=== PATIENT | female | born 1980 | race Caucasian/White ===

== ENCOUNTER 2018-07-27 08:34 | Emergency (ER) | payer BC, OTHER ==
[~2018-07-27] VITALS: Ht 152.4 cm; Wt 68.2 kg
[2018-07-27] MEDS ORDERED: NORE0.353 (08:41)
[2018-07-27] MEDS ORDERED: GABA-845 (08:41)
[2018-07-27] MEDS ORDERED: NS 1,000 ML IV ONE (09:30)
[2018-07-27 09:38] LABS: BASO % 0.4 % (0.0-1.0); EOS # 0.2 10^3/uL (0.0-0.50); EOS % 2.1 % (0.0-3.0); HEMATOCRIT 47.6 % (36.0-47.0); HEMOGLOBIN 16.5 g/dl (12.0-15.5); LYMPH # 2.2 10^3/uL (1.5-4.5); LYMPH % 27.2 % (24.0-44.0); MEAN CORPUSCULAR HEMOGLOBIN 31.4 pg (27.0-33.0); MEAN CORPUSCULAR HGB CONC 34.7 g/dl (32.0-36.5); MEAN CORPUSCULAR VOLUME 90.7 fl (80.0-96.0); MONO % 13.1 % (0.0-5.0); NEUTROPHILS # 4.5 10^3/uL (1.8-7.7); NEUTROPHILS % 57.1 % (36.0-66.0); PLATELET COUNT, AUTOMATED 235 10^3/uL (150-450); RED BLOOD COUNT 5.25 10^6/uL (4.00-5.40)
[2018-07-27 10:34] LABS: ALBUMIN 4.2 GM/DL (3.2-5.2); ALT/SGPT 33 U/L (12-78); BILIRUBIN,DIRECT < 0.1 MG/DL (0.0-0.2); BILIRUBIN,TOTAL 0.3 MG/DL (0.2-1.0); BLOOD UREA NITROGEN 11 MG/DL (7-18); CALCIUM LEVEL 8.9 MG/DL (8.5-10.1); CARBON DIOXIDE LEVEL 25 MEQ/L (21-32); CHLORIDE LEVEL 105 MEQ/L (98-107); CREATININE FOR GFR 0.78 MG/DL (0.55-1.30); GLOMERULAR FILTRATION RATE > 60.0 (>60); GLUCOSE, FASTING 89 MG/DL (70-100); HCG, SERUM QUANTITATIVE < 1.0 MIU/ML; LIPASE 129 U/L (73-393); POTASSIUM SERUM 4.3 MEQ/L (3.5-5.1); SODIUM LEVEL 140 MEQ/L (136-145); TOTAL PROTEIN 7.4 GM/DL (6.4-8.2)
[2018-07-27] MEDS ORDERED: ISOVUE-370 76% 100ML VIAL (Q9967) As Ordered ONE (10:42)
[2018-07-27 13:18] VITALS: BP 137/97
--- NOTE | 2018-07-27 14:33 | REP ---
CT abdomen and pelvis with IV without oral contrast: History: Left lower quadrant pain. Rule out diverticulitis. No comparison abdominal imaging. CT contrast dose: 100 ml of intravenous Isovue 370. 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 The lung bases are clear. There is no evidence of pleural effusion or upper abdominal ascites. There is a hypervascular liver lesion in the left lobe of the liver consistent with hemangioma. This measures 0.0 cm in greatest diameter. No other focal hepatic abnormality. The spleen is unremarkable. No adrenal lesion is seen on either side. No abnormalities noted in the gallbladder. The pancreas is unremarkable. The kidneys enhance symmetrically and are morphologically intact. No retroperitoneal mass or adenopathy is seen. Small and large bowel loops are normal in the upper abdomen. A normal appendix is seen in the right lower quadrant. There is a large heterogeneously enhancing vascular mass arising from the dome or fundus of the uterus. This extends up to the level of the umbilicus. The mass measures 11.0 cm right to left by 8.5 cm anterior to posterior by 12.0 cm cranial to caudal. It appears to reflect a subserosal uterine fibroid. The body of the uterus is slightly heterogeneous. No bladder abnormality is seen. No ovarian lesion is observed on either side. No free fluid. A no abdominal wall defect is seen. No bony destructive lesion is appreciated. Impression: There is a 12 cm solid hyper vascular subserosal uterine mass consistent with a fibroid, occupying the central pelvis, extending up to the umbilicus. Also noted is a 2 cm hypervascular lesion in the left lobe of the liver consistent with hemangioma. Otherwise negative. Electronically Signed by Devonte Motta MD 07/27/2018 05:22 P
--- NOTE | 2018-07-27 15:40 | REP ---
Pelvic sonography: Transabdominal scanning. History: Left lower quadrant pain. Further evaluate fibroid. Left ovary. Comparison is made with today's CT study. Findings: Uterine dimensions exclusive of the fibroid are 10.8 x 4.3 x 5.2 centimeters. A fundal subserosal fibroid seen on CT measures 11.4 x 7.5 x 10.1 cm sonographically. No other focal uterine mass is seen. Uterine myometrium is somewhat heterogeneous. Normal right ovary seen measuring 2.9 x 1.6 x 3.3 cm. Left ovary measures 3.5 x 1.9 x 2.0 cm. Normal Doppler blood flow is seen in both ovaries. Resistive indices are 0.65 on the right and 0.68 on the left. No free fluid. Impression: 11.4 cm fundal subserosal fibroid. Heterogeneous myometrium. Normal ovaries. Electronically Signed by Devonte Motta MD 07/27/2018 05:24 P
--- NOTE | 2018-07-30 11:04 | ED PDOC ---
Post-Departure Follow-Up taj yuen faxed formal report of pelvis us for fu Elidia Spencer MD Jul 30, 2018 11:04
--- NOTE | 2018-07-30 11:05 | ED PDOC ---
Post-Departure Follow-Up ct abd/p also faxed to taj cassidy for fu Elidia Spencer MD Jul 30, 2018 11:05
== END 2018-07-27 13:20 | disposition home or self-care (01) ==
LOC: M ED 08:34
DX: D25.9 Leiomyoma of uterus, unspecified (principal); Z79.899 Other long term (current) drug therapy; Z88.0 Allergy status to penicillin; Z88.1 Allergy status to other antibiotic agents; Z88.2 Allergy status to sulfonamides
CPT/HCPCS: 74177; 76856; 80048; 80076; 81001; 81025; 83690; 84702; 85025; 93976; 96360; 96361; 99284; Q9967

== ENCOUNTER 2018-10-25 06:01 | Inpatient (IN) | payer BC ==
[~2018-10-25] VITALS: Ht 152.4 cm; Wt 68.2 kg
[2018-10-25] VITALS (8 sets, daily range): BP systolic 125–141; BP diastolic 74–97
[~2018-10-25 06:01] MED LIST: GABA-845 PO; LIDOCAINE 1% MDV 20ML VIAL SQ PRN; MULTTAB86 PO; NORE0.353 PO; ZITH250T PO
[2018-10-25 06:29] LABS: HEMATOCRIT 50.3 % (36.0-47.0); HEMOGLOBIN 16.6 g/dl (12.0-15.5); MEAN CORPUSCULAR HEMOGLOBIN 30.7 pg (27.0-33.0); PLATELET COUNT, AUTOMATED 260 10^3/uL (150-450); RED BLOOD COUNT 5.41 10^6/uL (4.00-5.40); WHITE BLOOD COUNT 7.6 10^3/uL (4.0-10.0)
[2018-10-25 06:51] LABS: HCG, SERUM QUALITATIVE NEGATIVE (NEGATIVE)
[2018-10-25] MEDS ORDERED: CLINDAMYCIN 900 MG in APPROPRIATE DILUENT 1 EA IV ONE (07:00)
[2018-10-25] MEDS ORDERED: LR 1,000 ML IV ONE (07:00)
[2018-10-25] MEDS ORDERED: AZTREONAM 2 GM in D5W MINI-BAG PLUS 50 ML IV ONE (07:00)
[2018-10-25] MEDS ORDERED: BUPIVACAINE HCL 0.25% 30 ML VIAL As Ordered ONE (07:11)
[2018-10-25] MEDS ORDERED: VASOPRESSIN INJ 20 UNITS/ML VIAL As Ordered ONE (07:11)
[2018-10-25] MEDS ORDERED: dexameTHASONE 4 MG/ML 1ML VIAL (J1100) As Ordered ONE (08:11)
[2018-10-25] MEDS ORDERED: HYDROmorphone HCL 2 MG/ML 1ML VIAL (J1170) As Ordered ONE (08:11)
[2018-10-25] MEDS ORDERED: fentaNYL 250 MCG/5 ML INJECTION (J3010) As Ordered ONE (08:11)
[2018-10-25] MEDS ORDERED: SUGAMMADEX SODIUM 500 MG/5 ML VIAL (BRIDION) As Ordered ONE (08:11)
[2018-10-25] MEDS ORDERED: LIDOCAINE 2% INJ 100 MG/5 ML SDV (FOR ANES.) As Ordered ONE (08:11)
[2018-10-25] MEDS ORDERED: ONDANSETRON 4MG/2ML VIAL (J2405) As Ordered ONE (08:11)
[2018-10-25] MEDS ORDERED: ACETAMINOPHEN 1000MG 100ML IV BTL (OFIRMEV) (J0131 PER 10MG) As Ordered ONE (08:11)
[2018-10-25] MEDS ORDERED: PROPOFOL 200 MG/20 ML VIAL As Ordered ONE ×2 (08:11→09:35)
[2018-10-25] MEDS ORDERED: ROCURONIUM BROMIDE 50 MG/5 ML VIAL As Ordered ONE (08:11)
[2018-10-25] MEDS ORDERED: MIDAZOLAM INJ 2 MG/2 ML VIAL (J2250) As Ordered ONE (08:11)
[2018-10-25] MEDS ORDERED: KETOROLAC 60 MG/2 ML VIAL (J1885) As Ordered ONE (08:11)
[2018-10-25] MEDS ORDERED: ePHEDrine SULFATE 25 MG/5 ML(5MG/ML) SYRINGE As Ordered ONE ×2 (08:19→08:46)
[2018-10-25] MEDS ORDERED: oxyCODONE 5MG TAB As Ordered ONE (10:13)
[2018-10-25] MEDS ORDERED: fentaNYL 100 MCG/2 ML INJECTION (J3010) IV PRN (10:15)
[2018-10-25] MEDS ORDERED: METOCLOPRAMIDE INJ 10MG/2ML VIAL (J2765) IV PRN (10:15)
[2018-10-25] MEDS ORDERED: LR 1,000 ML IV SCH ×2 (10:15)
[2018-10-25] MEDS ORDERED: ONDANSETRON 4MG/2ML VIAL (J2405) IV PRN (10:15)
[2018-10-25] MEDS ORDERED: PERCOCET 5MG/325MG TAB PO PRN ×2 (10:15)
[2018-10-25] MEDS ORDERED: MORPHINE 4 MG/ML 1ML VIAL/SYRINGE (J2270) IV PRN (10:15)
[2018-10-25] MEDS ORDERED: oxyCODONE 5MG TAB PO PRN (10:30)
[2018-10-25] MEDS ORDERED: KETOROLAC 30 MG/ML VIAL (J1885) IV SCH (11:00)
[2018-10-25] MEDS ORDERED: OXYC1TAB23 PO (12:37)
--- NOTE | 2018-10-25 13:47 | RO ---
DATE OF OPERATION: 10/25/2018 PREOPERATIVE DIAGNOSIS: Fibroid uterus. DIAGNOSIS: Fibroid uterus. PROCEDURE PERFORMED: Abdominal myomectomy. SURGEON: Maritza Askew MD ASSET PROTECTION ASSISTANT: Michael Herring DO ANESTHESIA: General endotracheal anesthesia. ESTIMATED BLOOD LOSS: 150 mL. INTRAVENOUS FLUIDS: 1700 of lactated Ringer solution. URINE OUTPUT: 50 mL. SPECIMEN: Fibroid. OPERATIVE FINDINGS: Patient with approximately 10 x 14 cm subserosal fundal fibroid, normal-appearing bilateral adnexa, nulliparous appearing uterus. DESCRIPTION OF OPERATION: After informed consent was obtained and written consent reviewed, the patient was brought to the operating room where she was placed under general endotracheal anesthesia. A Chandler catheter was then placed and set to gravity. She was then prepped and draped in a normal sterile fashion. A time-out was performed in the operating room identifying the patient, procedure to be performed, as well as drug allergies. A Pfannenstiel skin incision was then made and this was carried down to the underlying rectus fascia. The fascia was scored and this incision was extended bilaterally. The fascia was then dissected off from the underlying rectus muscles both superiorly and inferiorly. The rectus muscles were entered in the midline. The peritoneum was then entered sharply. This was then extended. A Mobius retractor was then placed into the abdominal cavity. The uterus and fibroid was then brought to the level of the incision. Next, the fibroid as well as uterus was injected with diluted vasopressin. Using a bipolar cautery, an incision was then made along the serosa of the uterus. This incision was continued in along the location of the fibroid. The fibroid was then peeled off of the surface of the myometrium. Hemostasis was achieved with bipolar cautery. This dissection was done carefully not involving the uterine cavity. Specimen was then collected and sent to pathology. The anterior fundus was then closed using #0 Vicryl in a running locking fashion in two layers. This was followed by a third layer for imbrication. Several [id number] stitches were placed for hemostasis using #3-0 Vicryl. The abdomen was irrigated and suctioned. The uterine incision was then once again inspected and noted to be hemostatic. Ad was applied over the surgical site and Surgicel adhesive barrier was applied over the area. The uterus was then returned the patient's abdomen. The Mobius retractor was removed. The anterior peritoneum was then reapproximated with #3-0 Vicryl. Rectus muscles reapproximated with #3-0 Vicryl. Fascia was then closed with #0 Vicryl in a running nonlocking fashion. The subcutaneous tissue was then irrigated and suctioned. The subcutaneous tissue was then reapproximated with #3-0 Vicryl. Several subdermal stitches were placed with #3-0 Vicryl and the skin was closed with #4-0 Monocryl in subcuticular fashion. The incision was then clean and dry and was dressed. The patient was then awakened from general anesthesia and taken to recovery in stable condition. Counts were correct. Dr. Herring, my surgical processor played an essential role throughout the surgery. He assisted with tissue identification, retraction, as well as the meticulous nature of dissection of a fibroid and wound closure of this. MIKE
[2018-10-25] MEDS: KETOROLAC 30 MG/ML VIAL (J1885) IV SCH ×2 (15:00→21:13)
[2018-10-25] MEDS ORDERED: PROMETHAZINE INJ 25 MG/ML VIAL (J2550) IV PRN (16:00)
[2018-10-25] MEDS: PERCOCET 5MG/325MG TAB PO PRN (19:06)
[2018-10-26] VITALS: BP 116/72
[2018-10-26] MEDS: PERCOCET 5MG/325MG TAB PO PRN ×2 (00:49→07:18)
[2018-10-26] MEDS: KETOROLAC 30 MG/ML VIAL (J1885) IV SCH ×2 (03:20→08:43)
[2018-10-26 04:00] VITALS: BP 115/71
[2018-10-26 08:00] VITALS: BP 118/58
[2018-10-26 08:23] LABS: HEMATOCRIT 39.7 % (36.0-47.0); MEAN CORPUSCULAR HEMOGLOBIN 30.6 pg (27.0-33.0); MEAN CORPUSCULAR HGB CONC 32.7 g/dl (32.0-36.5); MEAN CORPUSCULAR VOLUME 93.4 fl (80.0-96.0); PLATELET COUNT, AUTOMATED 247 10^3/uL (150-450); RED BLOOD COUNT 4.25 10^6/uL (4.00-5.40); WHITE BLOOD COUNT 14.6 10^3/uL (4.0-10.0)
[2018-10-26 12:00] VITALS: BP 120/74
[2018-10-26] MEDS ORDERED: IBUPROFEN 800 MG TAB PO PRN (15:00)
[2018-10-26 16:00] VITALS: BP 122/76
[2018-10-26] MEDS ORDERED: ADVI100T PO (18:17)
== END 2018-10-26 18:55 | disposition home or self-care (01) | DRG 519 ==
LOC: M OR 06:01 → EDSTATUS 07:30 → M PED 10:45
PROVIDERS: ADMIT Obstetrics & Gynecology; ATTEND Obstetrics & Gynecology
PROC: 0UB90ZZ Excision of Uterus, Open Approach (ICD-10-PCS; principal; 2018-10-25 07:30)
DX: D25.2 Subserosal leiomyoma of uterus (principal); F17.210 Nicotine dependence, cigarettes, uncomplicated; M54.81 Occipital neuralgia

== ENCOUNTER → 2019-05-30 | Outpatient (CLI) | payer BC ==
[~2019-05-30] MED LIST changes: +ADVI100T PO; -LIDOCAINE 1% MDV 20ML VIAL SQ PRN; +OXYC1TAB23 PO
[2019-05-30 08:14] LABS: HEMATOCRIT 46.5 % (36.0-47.0); HEMOGLOBIN 15.4 g/dl (12.0-15.5); MEAN CORPUSCULAR HEMOGLOBIN 31.1 pg (27.0-33.0); MEAN CORPUSCULAR HGB CONC 33.1 g/dl (32.0-36.5); MEAN CORPUSCULAR VOLUME 93.9 fl (80.0-96.0); PLATELET COUNT, AUTOMATED 266 10^3/uL (150-450); RED BLOOD COUNT 4.95 10^6/uL (4.00-5.40); WHITE BLOOD COUNT 8.1 10^3/uL (4.0-10.0)
[2019-05-30 08:46] LABS: FREE T4 1.07 NG/DL (0.76-1.46); THYROID STIMULATING HORMONE 1.13 uIU/ML (0.358-3.740)
== END ==
LOC: M LAB 07:20
PROVIDERS: ATTEND Obstetrics & Gynecology
DX: N92.0 Excessive and frequent menstruation with regular cycle (principal)

== ENCOUNTER → 2019-06-05 | Outpatient (CLI) | payer BC ==
--- NOTE | 2019-06-05 14:55 | REP ---
Clinical: Abnormal uterine bleeding. Technique: Transabdominal pelvic ultrasound followed by transvaginal examination for better evaluation of the endometrium and adnexa. Comparison: 07/27/2018. Findings: Heterogeneous anteverted uterus measures 8.8 x 3.4 x 4.4 cm. Endometrial complex measures 4 mm thickness. No focal uterine or endometrial abnormalities appreciated. Bilateral ovaries are normal in appearance. Right ovary measures 2.6 x 1.7 x 1.8 cm. Left ovary measures 1.7 x 1.9 x 1.5 cm. No pelvic fluid or adnexal mass lesion. Bladder is unremarkable and currently measures 13.7 x 7.3 x 8.1 cm. Impression: Essentially normal pelvic ultrasound. Electronically Signed by Shiv Martinez MD 06/05/2019 02:47 P
== END ==
LOC: M RAD 13:00
PROVIDERS: ATTEND Obstetrics & Gynecology
DX: N92.0 Excessive and frequent menstruation with regular cycle (principal)

== ENCOUNTER → 2020-03-27 | Outpatient (REF) | payer BC | LOC: M SFHCWAGY 17:50 | PROVIDERS: ATTEND Nurse Practitioner Women's Health | DX: Z12.4 Encounter for screening for malignant neoplasm of cervix (principal); R87.610 Atypical squamous cells of undetermined significance on cytologic smear of cervix (ASC-US) | CPT/HCPCS: 87624; G0123 ==

== ENCOUNTER → 2020-03-27 | Outpatient (REF) | payer BC ==
[2020-04-02 14:54] LABS: CHLAMYDIA DNA AMPLIFICATION NEGATIVE (NEGATIVE); GC DNA AMPLIFICATION NEGATIVE (NEGATIVE)
== END ==
LOC: M SFHCWAGY 17:22
PROVIDERS: ATTEND Nurse Practitioner Women's Health
DX: Z11.3 Encounter for screening for infections with a predominantly sexual mode of transmission (principal)

== ENCOUNTER → 2020-07-28 | Outpatient (CLI) | payer BC ==
[2020-07-28 07:40] LABS: BASO % 0.5 % (0.0-1.0); EOS # 0.3 10^3/uL (0.0-0.5); EOS % 4.2 % (0.0-3.0); HEMATOCRIT 46.3 % (36.0-47.0); HEMOGLOBIN 15.3 g/dl (12.0-15.5); LYMPH # 2.9 10^3/uL (1.5-5.0); LYMPH % 35.6 % (24.0-44.0); MEAN CORPUSCULAR HEMOGLOBIN 30.7 pg (27.0-33.0); MEAN CORPUSCULAR VOLUME 92.8 fl (80.0-96.0); MONO % 12.6 % (0.0-5.0); NEUTROPHILS # 3.8 10^3/uL (1.5-8.5); NEUTROPHILS % 46.9 % (36.0-66.0); PLATELET COUNT, AUTOMATED 266 10^3/uL (150-450); RED BLOOD COUNT 4.99 10^6/uL (4.00-5.40); WHITE BLOOD COUNT 8.1 10^3/uL (4.0-10.0)
[2020-07-28 08:12] LABS: BLOOD UREA NITROGEN 12 MG/DL (7-18); CARBON DIOXIDE LEVEL 24 MEQ/L (21-32); CHLORIDE LEVEL 106 MEQ/L (98-107); CREATININE FOR GFR 0.85 MG/DL (0.55-1.30); GLOMERULAR FILTRATION RATE > 60.0 (>60); GLUCOSE, FASTING 89 MG/DL (70-100); SODIUM LEVEL 141 MEQ/L (136-145)
[2020-07-28 08:13] LABS: ALBUMIN 3.8 GM/DL (3.2-5.2); ALT/SGPT 28 U/L (12-78); BILIRUBIN,TOTAL 0.4 MG/DL (0.2-1.0); CHOLESTEROL LEVEL 188 MG/DL (<200); CHOLESTEROL RISK RATIO 4.272 (<5); FREE T4 1.16 NG/DL (0.76-1.46); HDL CHOLESTEROL 44 MG/DL (>40); LDL CHOLESTEROL 126 MG/DL (<100); NON-HDL-C 144 MG/DL; TOTAL PROTEIN 7.3 GM/DL (6.4-8.2); TRIGLYCERIDES LEVEL 92 MG/DL (<150)
== END ==
LOC: M LAB 06:58
PROVIDERS: ATTEND Nurse Practitioner Family
DX: Z00.00 Encounter for general adult medical examination without abnormal findings (principal); R63.5 Abnormal weight gain

== ENCOUNTER → 2021-09-10 | Outpatient (REF) | payer BC ==
[~2021-09-10] MED LIST changes: +GABA-283 PO; -GABA-845 PO
== END ==
LOC: M PLALAB 08:03
PROVIDERS: ATTEND Advanced Practice Midwife
DX: Z12.4 Encounter for screening for malignant neoplasm of cervix (principal)
CPT/HCPCS: 87624; G0123

== ENCOUNTER → 2022-08-18 | Outpatient (CLI) | payer BC ==
[2022-08-18 07:48] LABS: BASO % 0.2 % (0.0-1.0); EOS # 0.3 10^3/uL (0.0-0.5); EOS % 2.9 % (0.0-3.0); HEMATOCRIT 46.1 % (36.0-47.0); HEMOGLOBIN 15.5 g/dl (12.0-15.5); LYMPH # 2.6 10^3/uL (1.5-5.0); LYMPH % 27.6 % (24.0-44.0); MEAN CORPUSCULAR HEMOGLOBIN 30.8 pg (27.0-33.0); MEAN CORPUSCULAR HGB CONC 33.6 g/dl (32.0-36.5); MEAN CORPUSCULAR VOLUME 91.7 fl (80.0-96.0); MONO # 1.1 10^3/uL (0.0-0.8); MONO % 11.7 % (2.0-8.0); NEUTROPHILS # 5.3 10^3/uL (1.5-8.5); NEUTROPHILS % 57.3 % (36.0-66.0); PLATELET COUNT, AUTOMATED 301 10^3/uL (150-450); RED BLOOD COUNT 5.03 10^6/uL (4.00-5.40); WHITE BLOOD COUNT 9.2 10^3/uL (4.0-10.0)
[2022-08-18 08:09] LABS: ALKALINE PHOSPHATASE 65 U/L (46-116); ALT/SGPT 28 U/L (7.0-40); AST/SGOT 47 U/L (<34); BILIRUBIN,TOTAL 0.7 MG/DL (0.3-1.2); BLOOD UREA NITROGEN 13 MG/DL (9-23); CARBON DIOXIDE LEVEL 28 MMOL/L (20-31); CHLORIDE LEVEL 110 MMOL/L (98-107); CHOLESTEROL LEVEL 194 MG/DL (<200); CHOLESTEROL RISK RATIO 5.13 (<5); CREATININE FOR GFR 0.81 MG/DL (0.55-1.30); GLOMERULAR FILTRATION RATE > 60.0 (>58); GLUCOSE, FASTING 90 MG/DL (60-100); HDL CHOLESTEROL 37.8 MG/DL (>40); IRON (FE) 178 UG/DL (50-170); LDL CHOLESTEROL 125.6 MG/DL (<100); NON-HDL-C 156 MG/DL; PERCENT SATURATION 52.2 % (13.2-45.0); POTASSIUM SERUM 4.2 MMOL/L (3.5-5.1); SODIUM LEVEL 138 MMOL/L (136-145); TOTAL IRON BINDING CAPACITY 341 UG/DL (250-425); TOTAL PROTEIN 7.2 G/DL (5.7-8.2); TRIGLYCERIDES LEVEL 153 MG/DL (<150)
[2022-08-18 08:12] LABS: THYROID STIMULATING HORMONE 1.398 uIU/ML (0.55-4.78)
[2022-08-18 08:13] LABS: FERRITIN 59.3 NG/ML (7.3-270.7); FREE T4 1.17 NG/DL (0.89-1.76)
== END ==
LOC: M LAB 07:07
PROVIDERS: ATTEND Nurse Practitioner Family
DX: Z00.00 Encounter for general adult medical examination without abnormal findings (principal); R53.83 Other fatigue

== ENCOUNTER → 2022-12-02 | Outpatient (REF) | payer BC ==
[2022-12-02 17:26] LABS: GC DNA AMPLIFICATION NEGATIVE (NEGATIVE)
== END ==
LOC: M SFHCWAGY 15:12
PROVIDERS: ATTEND Advanced Practice Midwife
DX: Z12.4 Encounter for screening for malignant neoplasm of cervix (principal); Z11.3 Encounter for screening for infections with a predominantly sexual mode of transmission
CPT/HCPCS: 87624; 87661; 87810; 87850; G0123

== ENCOUNTER → 2023-02-11 | Outpatient (CLI) | payer BC ==
[~2023-02-11] MED LIST changes: -GABA-283 PO; +GABA-284 PO
== END ==
LOC: M RAD 07:05
PROVIDERS: ATTEND Advanced Practice Midwife
DX: D25.1 Intramural leiomyoma of uterus (principal); R14.0 Abdominal distension (gaseous); R10.2 Pelvic and perineal pain

== ENCOUNTER → 2023-09-26 | Outpatient (CLI) | payer BC ==
[2023-09-26 08:01] LABS: BASO % 0.3 % (0.0-1.0); EOS # 0.2 10^3/uL (0.0-0.5); EOS % 2.3 % (0.0-3.0); HEMATOCRIT 44.1 % (36.0-47.0); HEMOGLOBIN 15.1 g/dl (12.0-15.5); LYMPH % 27.7 % (24.0-44.0); MEAN CORPUSCULAR HEMOGLOBIN 31.5 pg (27.0-33.0); MEAN CORPUSCULAR HGB CONC 34.2 g/dl (32.0-36.5); MEAN CORPUSCULAR VOLUME 92.1 fl (80.0-96.0); MONO # 0.8 10^3/uL (0.0-0.8); MONO % 10.7 % (2.0-8.0); NEUTROPHILS # 4.3 10^3/uL (1.5-8.5); NEUTROPHILS % 58.7 % (36.0-66.0); PLATELET COUNT, AUTOMATED 258 10^3/uL (150-450); RED BLOOD COUNT 4.79 10^6/uL (4.00-5.40); WHITE BLOOD COUNT 7.4 10^3/uL (4.0-10.0)
[2023-09-26 08:31] LABS: ALBUMIN 3.8 G/DL (3.2-5.2); ALKALINE PHOSPHATASE 63 U/L (46-116); ALT/SGPT 25 U/L (7.0-40); AST/SGOT 17 U/L (<34); BILIRUBIN,TOTAL 0.6 MG/DL (0.3-1.2); BLOOD UREA NITROGEN 12 MG/DL (9-23); CALCIUM LEVEL 8.6 MG/DL (8.5-10.1); CARBON DIOXIDE LEVEL 28 MMOL/L (20-31); CHLORIDE LEVEL 108 MMOL/L (98-107); CHOLESTEROL LEVEL 172 MG/DL (<200); CHOLESTEROL RISK RATIO 4.49 (<5); CREATININE FOR GFR 0.72 MG/DL (0.55-1.30); GLOMERULAR FILTRATION RATE > 60.0 (>58); GLUCOSE, FASTING 95 MG/DL (60-100); HDL CHOLESTEROL 38.3 MG/DL (>40); LDL CHOLESTEROL 113.3 MG/DL (<100); NON-HDL-C 133.7 MG/DL; POTASSIUM SERUM 4.1 MMOL/L (3.5-5.1); SODIUM LEVEL 139 MMOL/L (136-145); THYROID STIMULATING HORMONE 1.644 uIU/ML (0.55-4.78); TOTAL PROTEIN 6.8 G/DL (5.7-8.2); TRIGLYCERIDES LEVEL 102 MG/DL (<150)
[2023-09-26 08:32] LABS: FREE T4 1.24 NG/DL (0.89-1.76); TOTAL 25(OH) VITAMIN D 20.7 NG/ML (20.0-100.0)
== END ==
LOC: M LAB 07:01
PROVIDERS: ATTEND Nurse Practitioner Family
DX: Z00.00 Encounter for general adult medical examination without abnormal findings (principal)

== ENCOUNTER → 2023-12-07 | Outpatient (REF) | payer BC ==
[2023-12-07 19:06] LABS: Trichomonas vaginalis (AMP) NOT DETECTED (NEGATIVE)
[2023-12-07 19:30] LABS: GC DNA AMPLIFICATION NEGATIVE (NEGATIVE)
[2023-12-09 13:57] LABS: HPV APTIMA Not Detected (Not Detected)
== END ==
LOC: M PLALAB 15:36
PROVIDERS: ATTEND Advanced Practice Midwife
DX: Z12.4 Encounter for screening for malignant neoplasm of cervix (principal); Z11.3 Encounter for screening for infections with a predominantly sexual mode of transmission
CPT/HCPCS: 87624; 87661; 87810; 87850; G0123

== ENCOUNTER → 2024-09-21 | Outpatient (CLI) | payer BC ==
[2024-09-21 08:04] LABS: BASO % 0.3 % (0.0-1.0); EOS # 0.2 10^3/uL (0.0-0.5); EOS % 2.2 % (0.0-3.0); HEMATOCRIT 44.8 % (36.0-47.0); HEMOGLOBIN 14.8 g/dl (12.0-15.5); LYMPH # 2.5 10^3/uL (1.5-5.0); MEAN CORPUSCULAR HEMOGLOBIN 30.5 pg (27.0-33.0); MEAN CORPUSCULAR VOLUME 92.4 fl (80.0-96.0); MONO % 9.8 % (2.0-8.0); NEUTROPHILS # 6.2 10^3/uL (1.5-8.5); NEUTROPHILS % 62.3 % (36.0-66.0); PLATELET COUNT, AUTOMATED 289 10^3/uL (150-450); RED BLOOD COUNT 4.85 10^6/uL (4.00-5.40)
[2024-09-21 08:29] LABS: THYROID STIMULATING HORMONE 1.357 uIU/ML (0.55-4.78)
[2024-09-21 08:37] LABS: ALBUMIN 3.6 G/DL (3.2-5.2); ALKALINE PHOSPHATASE 73 U/L (35-104); ALT/SGPT 21 U/L (7.0-40); AST/SGOT 14 U/L (<34); BILIRUBIN,TOTAL 0.3 MG/DL (0.3-1.2); BLOOD UREA NITROGEN 10 MG/DL (9-23); CALCIUM LEVEL 8.9 MG/DL (8.5-10.1); CARBON DIOXIDE LEVEL 25 MMOL/L (20-31); CHLORIDE LEVEL 107 MMOL/L (98-107); CHOLESTEROL LEVEL 174 MG/DL (<200); CHOLESTEROL RISK RATIO 4.21 (<5); CREATININE FOR GFR 0.76 MG/DL (0.55-1.30); GLOMERULAR FILTRATION RATE > 60.0 (>58); GLUCOSE, FASTING 88 MG/DL (60-100); HDL CHOLESTEROL 41.3 MG/DL (>40); LDL CHOLESTEROL 116.5 MG/DL (<100); NON-HDL-C 132.7 MG/DL; POTASSIUM SERUM 4.6 MMOL/L (3.5-5.1); SODIUM LEVEL 142 MMOL/L (136-145); TOTAL PROTEIN 6.7 G/DL (5.7-8.2); TRIGLYCERIDES LEVEL 81 MG/DL (<150)
== END ==
LOC: M LAB 06:56
PROVIDERS: ATTEND Nurse Practitioner Family
DX: Z00.00 Encounter for general adult medical examination without abnormal findings (principal)

== ENCOUNTER → 2025-02-15 | Outpatient (CLI) | payer BC | LOC: M SOG 06:56 | PROVIDERS: ATTEND Orthopaedic Surgery | DX: M25.561 Pain in right knee (principal) ==

== ENCOUNTER → 2025-04-25 | Outpatient (CLI) | payer BC | LOC: M PLAIMG 07:01 | PROVIDERS: ATTEND Orthopaedic Surgery | DX: M25.561 Pain in right knee (principal); M25.461 Effusion, right knee; M17.11 Unilateral primary osteoarthritis, right knee ==